=== PATIENT | female | born 1995 | race Caucasian/White ===

== ENCOUNTER 2017-04-30 15:47 | Outpatient (CLI) | payer OTHER ==
[~2017-04-30] VITALS: Ht 157.5 cm; Wt 94.0 kg
[2017-04-30 15:57] VITALS: BP 126/73; PULSE 101; Ht 157.5 cm; Wt 94.0 kg
--- NOTE | 2017-04-30 16:47 | RADRPT ---
PROCEDURE: US OB. CLINICAL INDICATION: Diabetes TECHNIQUE: Multiple sonographic images of the pelvis were obtained. The images were reviewed on a PACS workstation. COMPARISON: No prior studies are available for comparison. FINDINGS: There is a single live intrauterine . cardiac activity is identified at a rate of 13 8 beats per minute. presentation is cephalic. Placenta is anterior grade 1 to 10. Biophysical profile score is as follows: Breathing 2 Movements 2 Tone 2 Fluid volume 2 Amniotic fluid index = 20.7 cm Total biophysical profile score = 8/8 IMPRESSION: Biophysical profile score = 8/8 Borderline polyhydramnios RPTAT: HH .Sav Dooley MD, MD Date Time Electronically viewed and signed by .Sav Dooley MD, on 04/30/2017 16:47 .W/
--- NOTE | 2017-04-30 17:28 | PN ---
Triage Information Date/Time Reason for visit: NST,BPP Weeks of Gestation 32+ /Para 4/2 Diabetes: gestational Diabetes management: diet controlled Hypertention: none Objective Vital Signs Date Time Temp Pulse Resp B/P Pulse Ox O2 Delivery O2 Flow Rate FiO2 04/30/17 15:57 97.9 101 126/73 Heart Rate: 140's Results/Medications Results 24 hrs Laboratory Tests Test 04/30/17 16:02 Bedside Glucose 103 Disposition: Discharge KLAUDIA TERRELL M.D. Apr 30, 2017 17:28
--- NOTE | 2017-04-30 18:02 | TRIAGE ---
OB Triage Datetime Report Generated by CPN: 04/30/2017 18:02 Datetime: 04/30/2017 17:24 Stage of : OB Triage Datetime: 04/30/2017 17:11 Stage of : OB Triage Datetime: 04/30/2017 17:07 Labor Evaluation Frequency: 0 Monitor Mode: External Resting Tone [place]: Relaxed Heart Rate FHR Baseline Rate: 135 Monitor Mode: External US Variability: Moderate 6-25 bpm Accelerations: 10X10 Decelerations: None Category: Category I Pain Assessment Pain Scale: 0 Pain Presence: None/Denies Pain Type: N/A Pain Goal: 3 Pain Relief Measures: Comfort Measures Datetime: 04/30/2017 17:01 Stage of : OB Triage Datetime: 04/30/2017 16:01 Bedside Blood Glucose: 103 Datetime: 04/30/2017 15:54 Stage of : OB Triage Assessment Type: Triage Maternal Assessment Level of Consciousness: Fully Conscious DTR's/Clonus: DTRs 2+; No Clonus Headache: Denies Blurred Vision: No Respiratory Effort: Unlabored; Regular Rhythm; Equal Expansion Breath Sounds, Left: Clear and Equal Breath Sounds, Right: Clear and Equal Nausea/Vomiting: Denies RUQ Epigastric Pain: Denies Facial Edema: None Temperature Route: Axillary Fall Risk Assessment History of Falling: (0) No Secondary Diagnosis: (0) No Ambulatory Aid: (0) Bedrest/Nurse Assist IV Therapy: (0) No Gait: (0) Normal/Bedrest/Immobile Mental Status: (0) Oriented to Own Ability Fall Score: 0 Fall Risk Score Definition: No Risk: No action required Labor Evaluation Frequency: 0 Monitor Mode: External Pattern: Normal: <= 5 Contractions in 10 Minutes Resting Tone [place]: Relaxed Heart Rate FHR Baseline Rate: 145 Monitor Mode: External US Variability: Moderate 6-25 bpm Decelerations: None Category: Category I Pain Assessment Pain Scale: 0 Pain Presence: None/Denies Pain Type: N/A Pain Goal: 3 Pain Relief Measures: Comfort Measures Datetime: 04/30/2017 15:53 Time of Arrival: 04/30/2017 15:40 EGA: 32.2 Arrived By: Ambulatory Arrived From: Home Chief Complaint: NST/BPP GDM, DENIES LEAKING, BLEEDING OR UC'S Movement: Present Contractions: Denies/Absent Rupture of Membranes: Denies Vaginal Bleeding: None Vaginal Discharge: Denies Recent Sexual Intercouse: Yes Abdominal Trauma: Not Applicable Patient Complaints: None Time Provider Notified: 04/30/2017 17:01 Provider Notified: DHAVAL Initial Plan: MONITOR, BPP/NST
== END 2017-04-30 17:33 | disposition home or self-care (01) ==
LOC: OBT 15:47 → L-D 15:49 → OBT 17:33
PROVIDERS: ATTEND Obstetrics & Gynecology
DX: O24.410 Gestational diabetes mellitus in pregnancy, diet controlled (principal); Z3A.32 32 weeks gestation of pregnancy
CPT/HCPCS: 76818; 82962; Z7500; G0463

== ENCOUNTER 2017-05-07 17:32 | Outpatient (CLI) | payer OTHER ==
[~2017-05-07] VITALS: Ht 157.5 cm; Wt 94.1 kg
[2017-05-07] MEDS ORDERED: FERR256T PO (17:46)
[2017-05-07] MEDS ORDERED: PNV11TAB PO (17:46)
[2017-05-07 17:51] VITALS: BP 114/56; PULSE 90; RESP 18
--- NOTE | 2017-05-07 19:08 | RADRPT ---
PROCEDURE: US biophysical profile. CLINICAL INDICATION: GDM. well-being. TECHNIQUE: Multiple sonographic images of the uterus were obtained. The images were revi ewed on a PACS workstation. COMPARISON: OB ultrasound 04/30/2017. FINDINGS: There is a single live intrauterine gestation. heart rate is 117 beats per minute. The position is cephalic. The placenta is anterior, grade 1. The GALE is 11 cm. Breathing Movement: 2 Gross Body Movement: 2 Tone: 2 Qualitative Amniotic Fluid Volume: 2 TOTAL: 8 IMPRESSION: 1. Single viable intrauterine gestation. 2. Biophysical profile = 12/22. 3. GALE = 11 cm. RPTAT: HFN .Heath Holder MD, Date Time Electronically viewed and signed by .Heath Holder MD, MD on 05/07/2017 19:08 .N/
--- NOTE | 2017-05-07 20:00 | PN ---
Triage Information Date/Time Reason for visit: Weeks of Gestation 33w 2d /Para Diabetes: gestational Diabetes management: diet controlled Objective Vital Signs Date Time Temp Pulse Resp B/P Pulse Ox O2 Delivery O2 Flow Rate FiO2 05/07/17 17:51 98.2 90 18 114/56 98 Room Air Heart Rate Comments reactive Contractions: None Results/Medications Imaging Results BPP 8/, GALE 11cm Disposition: Discharge WENDY PATEL May 07, 2017 20:00
--- NOTE | 2017-05-07 20:37 | TRIAGE ---
OB Triage Datetime Report Generated by CPN: 05/07/2017 20:37 Datetime: 05/07/2017 20:03 Stage of : OB Triage Datetime: 05/07/2017 19:34 Stage of : OB Triage Datetime: 05/07/2017 19:32 Stage of : Labor Datetime: 05/07/2017 19:31 Stage of : OB Triage Datetime: 05/07/2017 19:20 Stage of : OB Triage Datetime: 05/07/2017 19:02 Maternal Assessment Level of Consciousness: Fully Conscious Headache: Denies Blurred Vision: No Nausea/Vomiting: Denies RUQ Epigastric Pain: Denies Facial Edema: None Labor Evaluation Frequency: 0 Monitor Mode: External Pattern: Normal: <= 5 Contractions in 10 Minutes Resting Tone [place]: Relaxed Heart Rate FHR Baseline Rate: 130 Monitor Mode: External US FHR Baseline Changes: No Baseline Change Variability: Moderate 6-25 bpm Accelerations: 15X15 Decelerations: None Pain Assessment Pain Scale: 0 Pain Presence: None/Denies Pain Type: N/A Datetime: 05/07/2017 18:41 Monitor Mode: External US Datetime: 05/07/2017 18:32 Labor Evaluation Frequency: 0 Monitor Mode: External Pattern: Normal: <= 5 Contractions in 10 Minutes Resting Tone [place]: Relaxed Heart Rate FHR Baseline Rate: 125 Monitor Mode: External US FHR Baseline Changes: No Baseline Change Variability: Moderate 6-25 bpm Accelerations: 15X15 Decelerations: None Datetime: 05/07/2017 17:49 Time of Arrival: 05/07/2017 17:27 EGA: 33.2 Arrived By: Ambulatory Arrived From: Home Chief Complaint: REPEAT NST/BPP; GLUCOSE AFTER LUNCH: 101MG/DL. Movement: Present Contractions: Denies/Absent Rupture of Membranes: Denies Vaginal Bleeding: None Vaginal Discharge: Present Abdominal Trauma: Not Applicable Patient Complaints: None Initial Plan: EFM x2, BPP Datetime: 05/07/2017 17:47 Stage of : OB Triage Assessment Type: Triage Maternal Assessment Level of Consciousness: Fully Conscious Headache: Denies Blurred Vision: No Respiratory Effort: Unlabored; Regular Rhythm; Equal Expansion Breath Sounds, Left: Clear and Equal Breath Sounds, Right: Clear and Equal Nausea/Vomiting: Denies RUQ Epigastric Pain: Denies Facial Edema: None Temperature Route: Oral Fall Risk Assessment History of Falling: (0) No Secondary Diagnosis: (0) No Ambulatory Aid: (0) Bedrest/Nurse Assist IV Therapy: (0) No Gait: (0) Normal/Bedrest/Immobile Mental Status: (0) Oriented to Own Ability Fall Score: 0 Fall Risk Score Definition: No Risk: No action required Pain Assessment Pain Scale: 0 Pain Presence: None/Denies Pain Type: N/A Datetime: 04/30/2017 15:54 Fall Score: 0 Fall Risk Score Definition: No Risk: No action required Datetime: 04/30/2017 15:53 EGA: 32.2
== END 2017-05-07 20:03 | disposition home or self-care (01) ==
LOC: OBT 17:32 → L-D 17:34 → OBT 20:03
PROVIDERS: ATTEND Obstetrics & Gynecology
DX: O24.419 Gestational diabetes mellitus in pregnancy, unspecified control (principal); Z3A.33 33 weeks gestation of pregnancy
CPT/HCPCS: 76818; Z7500; G0463

== ENCOUNTER 2017-05-24 16:20 | Outpatient (CLI) | END 2017-05-24 18:34 | disposition home or self-care (01) ==

== ENCOUNTER 2017-06-01 21:15 | Inpatient (IN) | END 2017-06-04 19:10 | disposition home or self-care (01) | DRG 775 ==